=== PATIENT | female | born 1970 | race Caucasian/White ===

== ENCOUNTER 2021-02-11 02:49 | Emergency (ER) | payer SELFPAY | END 2021-02-11 05:26 | disposition home or self-care (01) | LOC: ERS 02:49 | DX: M54.50 Low back pain, unspecified (principal); Z72.0 Tobacco use | CPT/HCPCS: 72131; 96372 ==

== ENCOUNTER 2021-04-19 23:33 | Emergency (ER) | payer SELFPAY ==
[2021-04-20] MEDS ORDERED: Morphine 4 MG/ML VIAL ONE (02:36)
[2021-04-20] MEDS ORDERED: Ibuprofen 800 MG TAB ONE (02:58)
== END 2021-04-20 02:56 | disposition home or self-care (01) ==
LOC: ERS 23:33
DX: R59.1 Generalized enlarged lymph nodes (principal); M79.622 Pain in left upper arm; F17.200 Nicotine dependence, unspecified, uncomplicated; Z79.899 Other long term (current) drug therapy
CPT/HCPCS: 96372; 99283; J2270

== ENCOUNTER 2023-02-27 14:15 | Outpatient (CLI) | payer OTHER | END 2023-02-27 14:16 | disposition home or self-care (01) | LOC: BICMAMMO 14:15 | PROVIDERS: ATTEND Internal Medicine | DX: D17.20 Benign lipomatous neoplasm of skin and subcutaneous tissue of unspecified limb (principal) | CPT/HCPCS: 77066; G0279 ==

== ENCOUNTER 2023-04-24 09:20 | Emergency (ER) | payer SELFPAY ==
[2023-04-24] MEDS ORDERED: Benzonatate 100 MG CAP ONE (09:36)
[2023-04-24] MEDS ORDERED: predniSONE 20 MG TAB ONE (09:45)
[2023-04-24] MEDS ORDERED: Ipratropium/Albuterol 3 ML NEB ONE ×2 (09:58→11:14)
[2023-04-24] MEDS ORDERED: Iopamidol-370 76% 500 ML MDV (1 ML CHARGE) ONE (14:17)
== END 2023-04-24 11:37 | disposition home or self-care (01) ==
LOC: ERS 09:20
DX: J18.9 Pneumonia, unspecified organism (principal); R06.2 Wheezing
CPT/HCPCS: 71045; 71260; 94640; J7512; J7620; Q9967

== ENCOUNTER 2023-04-27 08:23 | Emergency (ER) | payer SELFPAY ==
[2023-04-27 09:03] LABS: #Eosinphils 0.1 thou/uL (0.0-0.7); #Monocytes 0.6 thou/uL (0.11-0.59); #Neutrophils 2.7 thou/uL (1.40-6.50); %Basophils 0.6 % (0.0-1.0); %Eosinophils 2.9 % (0.0-10.0); %Lymphocytes 27.9 % (21.0-51.0); %Monocytes 12.3 % (0.0-10.0); %Neutrophils 55.9 % (42.0-75.0); Hematocrit 39.9 % (36.0-47.0); Hemoglobin 13.4 g/dL (12.0-16.0); Mean Corpuscular HGB CONC 33.6 g/dL (32.0-36.0); Mean Corpuscular Hemoglobin 30.9 pg (27.0-31.0); Mean Corpuscular Volume 91.9 fl (78.0-98.0); Mean Platelet Volume 9.7 fL (7.4-10.4); Platelet Count 283 10x3/uL (130-400); RBC Distribution Width 13.4 % (11.5-14.5); Red Blood Cell (RBC) Count 4.34 mill/uL (4.20-5.40); White Blood Cell (WBC) Count 4.9 10x3/uL (4.8-10.8)
[2023-04-27] MEDS ORDERED: Ondansetron PF 4 MG/2 ML Vial ONE (09:19)
[2023-04-27] MEDS ORDERED: Ketorolac Tromethamine 30 MG (1 mL) VIAL ONE (09:19)
[2023-04-27] MEDS ORDERED: Pantoprazole 40 MG VIAL ONE (09:19)
[2023-04-27 09:26] LABS: ALT (SGPT) 20 U/L (8-55); AST (SGOT) 14 U/L (5-34); Albumin 3.8 g/dL (3.5-5.0); Alkaline Phosphatase 95 U/L (40-110); Anion Gap 12 mmol/L (10-20); BUN (Urea Nitrogen) 13 mg/dL (9.8-20.1); Bilirubin, Total 0.2 mg/dL (0.2-1.2); Calc. Creatinine Clearance 0 mL/min (70-130); Calcium 8.8 mg/dL (7.8-10.44); Carbon Dioxide 29 mmol/L (22-29); Chloride 101 mmol/L (98-107); Estimated GFR 101; Globulin 2.9 g/dL (2.4-3.5); Glucose 74 mg/dL (70-105); Lipase 22 U/L (8-78); Potassium 3.4 mmol/L (3.5-5.1); Protein, Total 6.7 g/dL (6.0-8.3); Sodium 139 mmol/L (136-145)
[2023-04-27 10:18] LABS: Bacteria/HPF None Seen HPF (None Seen); Bilirubin Negative (Negative); Blood, Urine Negative (Negative); CAUTI Indications for Culture Pelvic or flank pain; Clarity Clear (Clear); Glucose, Urine (Dipstick) Normal (Negative); Ketone, Urine Negative (Negative); Leukocyte Negative Leu/uL (Negative); Nitrite Negative (Negative); Protein, Urine (Dipstick) Negative (Neg-Trace); RBC/HPF 0-3 HPF (0-3); Specific Gravity, Urine 1.004 (1.002-1.036); Squamous Epithelial None Seen HPF (0-3); Urine Culture Reflex No No; Urobilinogen Normal mg/dL (Less than 2); WBC/HPF 0-3 HPF (0-3)
== END 2023-04-27 10:45 | disposition home or self-care (01) ==
LOC: ERS 08:23
DX: R10.31 Right lower quadrant pain (principal); F17.290 Nicotine dependence, other tobacco product, uncomplicated
CPT/HCPCS: 74176; 80053; 81001; 83690; 85025; 96374; C9113; J1885; J2405

== ENCOUNTER 2023-05-25 21:23 | Emergency (ER) | payer SELFPAY ==
[2023-05-25 23:04] LABS: #Monocytes 1.3 thou/uL (0.11-0.59); #Neutrophils 7.1 thou/uL (1.40-6.50); %Basophils 0.2 % (0.0-1.0); %Eosinophils 0.3 % (0.0-10.0); %Lymphocytes 18.3 % (21.0-51.0); %Monocytes 12.3 % (0.0-10.0); %Neutrophils 68.5 % (42.0-75.0); Hematocrit 38.4 % (36.0-47.0); Hemoglobin 13.3 g/dL (12.0-16.0); Mean Corpuscular HGB CONC 34.6 g/dL (32.0-36.0); Mean Corpuscular Hemoglobin 30.6 pg (27.0-31.0); Mean Corpuscular Volume 88.3 fl (78.0-98.0); Mean Platelet Volume 9.7 fL (7.4-10.4); Platelet Count 410 10x3/uL (130-400); RBC Distribution Width 13.2 % (11.5-14.5); Red Blood Cell (RBC) Count 4.35 mill/uL (4.20-5.40); White Blood Cell (WBC) Count 10.4 10x3/uL (4.8-10.8)
[2023-05-25 23:19] LABS: Acetaminophen Less than 10 mcg/mL (10.0-30.0); Alcohol Less than 10.0 mg/dL (Less than 10); Salicylate Less than 8.0 mg/dL (15.0-30.0)
[2023-05-25 23:32] LABS: ALT (SGPT) 20 U/L (8-55); AST (SGOT) 24 U/L (5-34); Albumin 4.2 g/dL (3.5-5.0); Alkaline Phosphatase 92 U/L (40-110); Anion Gap 16 mmol/L (10-20); BUN (Urea Nitrogen) 4 mg/dL (9.8-20.1); Bilirubin, Total 0.5 mg/dL (0.2-1.2); Calc. Creatinine Clearance 0 mL/min (70-130); Calcium 9.9 mg/dL (7.8-10.44); Carbon Dioxide 24 mmol/L (22-29); Chloride 100 mmol/L (98-107); Estimated GFR 95; Globulin 3.3 g/dL (2.4-3.5); Glucose 99 mg/dL (70-105); Potassium 2.9 mmol/L (3.5-5.1); Protein, Total 7.5 g/dL (6.0-8.3); Sodium 137 mmol/L (136-145)
[2023-05-25 23:35] LABS: Troponin I Less than 0.010 ng/mL (< 0.028)
[2023-05-25] MEDS ORDERED: diphenhydrAMINE 25 MG CAP ONE (23:57)
[2023-05-25] MEDS ORDERED: Potassium Chloride 20 MEQ TAB ONE (23:57)
[2023-05-25] MEDS ORDERED: Magnesium 2 GM/50 ML BAG (IN WATER) ONE (23:57)
[2023-05-25] MEDS ORDERED: Acetaminophen 325 MG TAB ONE (23:57)
[2023-05-25] MEDS ORDERED: Potassium Chloride 20 MEQ (100 mL) BAG ONE (23:57)
[2023-05-26 01:06] LABS: Bacteria/HPF None Seen HPF (None Seen); Bilirubin Negative (Negative); Blood, Urine Negative (Negative); CAUTI Indications for Culture Pelvic or flank pain; Clarity Clear (Clear); Glucose, Urine (Dipstick) Normal (Negative); Ketone, Urine Negative (Negative); Leukocyte Negative Leu/uL (Negative); Nitrite Negative (Negative); Protein, Urine (Dipstick) Negative (Neg-Trace); RBC/HPF 0-3 HPF (0-3); Specific Gravity, Urine 1.033 (1.002-1.036); Squamous Epithelial None Seen HPF (0-3); Urobilinogen Normal mg/dL (Less than 2); WBC/HPF 0-3 HPF (0-3); pH, Urine 6.5 (5.0-9.0)
[2023-05-26 01:15] LABS: Amphetamine Not Detected (NotDetected); Barbiturates Screen Not Detected (NotDetected); Benzodiazepine Screen Detected (NotDetected); Cocaine Metabolite Screen Not Detected (NotDetected); Methadone Not Detected (NotDetected); Methamphetamine Not Detected (NotDetected); Opiate Screen Detected (NotDetected); Oxycodone Screen Not Detected (NotDetected); Phencyclidine (PCP) Not Detected (NotDetected); THC/Cannabinoid Screen Not Detected (NotDetected); Tricyclic Screen Not Detected (NotDetected)
[2023-05-26 01:21] LABS: Urine Culture Reflex No No
[2023-05-26] MEDS ORDERED: Ketorolac Tromethamine 30 MG (1 mL) VIAL ONE (02:16)
[2023-05-26] MEDS ORDERED: Potassium Bicarbonate/Cit Ac 20 MEQ TAB ONE (02:27)
== END 2023-05-26 05:15 | disposition home or self-care (01) ==
LOC: ERS 21:23
DX: E87.6 Hypokalemia (principal); J18.9 Pneumonia, unspecified organism; F17.210 Nicotine dependence, cigarettes, uncomplicated; F10.10 Alcohol abuse, uncomplicated; F41.9 Anxiety disorder, unspecified; F32.A Depression, unspecified; E78.5 Hyperlipidemia, unspecified; K86.1 Other chronic pancreatitis; Z55.6 Problems related to health literacy
CPT/HCPCS: 36415; 71045; 80053; 80306; 80307; 81001; 83605; 84484; 85025; 93005; 96365; 96366; 96367; 96375; J1885; J3475; J3480

== ENCOUNTER 2023-05-26 17:19 | Emergency (ER) | payer SELFPAY | END 2023-05-26 18:19 | disposition home or self-care (01) | LOC: ERS 17:19 | DX: I10 Essential (primary) hypertension (principal); Z76.5 Malingerer [conscious simulation] | CPT/HCPCS: 99283 ==